=== PATIENT | male | born 1945 | race Caucasian/White ===

== ENCOUNTER 2016-10-22 01:32 | Inpatient (IN) | payer OTHER ==
[~2016-10-22] VITALS: Ht 185.4 cm; Wt 111.1 kg
[~2016-10-22 01:32] MED LIST: AMBIEN10 M1 PO; ASPIRIN81 M4 PO; CARAFATE1 GM PO; GABAPENTIN300 M2 PO; LEADER MELATONIN5 MG PO; NUEDEXTA 20-101 EACH PO; OMEPRAZOLE20 M2 PO; PAXIL40 M1 PO; PERCOCET 325 MG1 TA2 PO; PROTONIX 40MG T40 MG PO; XANAX1 M1 PO; XANAX1 MG PO
--- NOTE | 2016-10-22 15:00 | Operative Report ---
Operative/Inv Procedure Report Surgery Date: 10/22/16 Name of Procedure: Laparoscopic recurrent hiatal hernia repair with mesh and Patricia fundoplication Pre-Operative Diagnosis: Recurrent hiatal hernia GERD Post-Operative Diagnosis: Same same Estimated Blood Loss: 50ml to 100ml Surgeon/Stack Matcher: HAL BANDA,MONET Davila/Stephanie FIELDS Anesthesia: general endotracheal tube Implants: [employer] bio a mesh Operative Indication: 71-year-old male status post emergency repair of strangulated hiatal hernia 3 years ago. He now presents with recurrent GERD symptoms and a recurrent hiatal hernia. Operative/Procedure Note Note: After informed consent is brought to the operating room laid supine. Gen. anesthesia was obtained and his placed in lithotomy position. The skin was infiltrated local anesthesia a transverse incision made through pre-existing epigastric scar. We came down to the fascial bluntly and incised it sharply. Stay sutures were placed and a blunt Diop ports placed. Pneumoperitoneum achieved. A 5 mm port was placed in the right upper quadrant after local anesthesia was instilled and under direct vision and camera. Port was extracted and Naya retractor placed through it. Liver was elevated. There is density adhesions to the left lobe of liver. 3-5 mm ports were placed in the epigastrium and right upper quadrant after local anesthesia was instilled under direct vision the camera. Began or dissection at the liver. There were dense adhesions which were taken with the Sonicision device. We got into some bleeding so we turned attention to the left side. Radial to create a plane laterally dissect the fundus off of the left crura with blunt and Sonicision dissection. We then took down the short gastrics to allow better mobilization the fundus and free it down to level of the lower portion of the camera. This is really the only easy plane. The right side was much more difficult. Eventually took down all the adhesions and the liver which allowed us to identify the crura. We then got into the extra sac space anteriorly at the upper crura. We circumvention dissected the sac with a Sonicision device. We finally were able to circumferentially dissect the GE junction and place a umbilical tape around the GE junction. It was tied to itself and this was used to aid in retraction. The esophagus was mobilized from the mediastinum with a Sonicision device. Once we had 3-470 is of intra-abdominal esophagus we concluded that portion of the dissection. The crura were then reapproximated with interrupted 0 Nurolon sutures. The right crura was quite woody in nature making it very tense closure. We used proximally 7 sutures some of which were right on top one another to allow better apposition of the crura. I placed one suture anteriorly. At this point we created fundoplication by passing the fundus posterior to the GE junction. A shoeshine maneuver was performed. The fundus was then sutured anteriorly with interrupted 2-0 Vicryl sutures. A total of 3 sutures. Laced 2 of which contained the anterior portion of the esophagus. Then placed a piece of [employer] bio a mesh into the cavity. His placed posterior to the fundoplication and over the crural repair. The umbilical tape was extracted and ports deliver. The liver edge was allowed to fall down to its normal position. Ports removed and gas evacuated. The fascia was closed 0 Vicryl suture. Skin incisions closed with 4-0 Vicryl. Steri-Strips and sterile dressing applied. Sponge and needle counts are correct CC: JOSEFA BANDA,JOSE Grimm
--- NOTE | 2016-10-22 15:55 | Admission Core Measures ---
Admission Meds I reviewed the following Meds: Current Medications Sig/Deuce Start time Last Medication Dose Stop Time Status Admin Acetaminophen 1,000 MG Q6 10/22 1800 UNVr (Ofirmev) Alprazolam 1 MG AT BEDTIME NEED.. 10/22 1545 UNVr (Xanax) 10/29 1544 Cefazolin Sodium 2,000 MG IQ8 10/22 2200 UNVr (Kefzol-Ancef Inj) 10/23 0801 Cefazolin Sodium 2,000 MG ONCE 10/22 0000 NR (Kefzol-Ancef Inj) 10/22 2359 Gabapentin 300 MG AT BEDTIME 10/22 2200 UNVr (Neurontin) Heparin Sodium 5,000 UNIT Q8 10/22 2200 UNVr (Porcine) Ketorolac 15 MG Q6-PRN PRN 10/22 1600 UNVr Tromethamine (Toradol) Morphine Sulfate 2 MG Q2P PRN 10/22 1545 UNVr (Morphine) Morphine Sulfate 4 MG Q2P PRN 10/22 1545 UNVr (Morphine) Ondansetron HCl 4 MG Q6P PRN 10/22 1545 UNVr (Zofran) Paroxetine HCl 40 MG DAILY 10/23 1000 UNVr (Paxil) Potassium Chloride 20 MEQ Q10H 10/22 1545 UNVr (KCl 20MEQ in D5W 1/ 2NS 1000ML) Dextrose/Sodium 1,000 ML Chloride (D5W-1/2 Normal Saline 1000ML) Zolpidem Tartrate 10 MG AT BEDTIME PRN 10/22 1600 UNVr (Ambien) Acute Coronary Syndrome Inclusion Criteria ACS Diagnosis No Inpatient Core Measures LDL Reminder: If No, please order W/I first 24hr of stay Congestive Heart Failure Inclusion Criteria CHF Diagnosis No Cerebrovascular accident Inclusion Criteria CVA/TIA Diagnosis No Inpatient Core Measures Bedside Swallow Eval Reminder: If BSE failed, place ST order Antithrombotic Reminder: Order Antithrombotic Medication by end of day 2 Antithrombotic Reminder: Document Reason Antithrombotic Not ordered by end of day 2 AFIB/Flutter Reminder: If Present, add to problem list AFIB/Flutter Reminder: Order Anticoag Medication for pts with AFIB/Flutter Atherosclerosis Reminder: If Present, add to problem list LDL Reminder: If No, please order W/I first 24hr of stay PT Order Reminder: If No, please order Venous thromboembolism Inpatient Core Measures VTE Risk Factors: Age > 40, Surgery [facility] prophylaxis d/t No contraindications No VTE Pharm Prophylaxis d/t No contraindications Inclusion Criteria - Per Current guidelines, there needs to be overlap - treatment for the first 5 days of Warfarin therapy. - Parenteral Anticoagulation (IV or SC) needs to be - given along with Warfarin therapy. VTE Diagnosis No VTE Type NONE VTE Confirmed by (Test) NONE Problem List As ranked by this Provider includes Assessment & Plan 1. Hiatal hernia 2. Status post laparoscopic Patricia fundoplication HOME MEDS Home Med List Alprazolam (Xanax) 1 MG TABLET 1 TAB PO NIGHTLY PRN SLEEP (Reported) Gabapentin 300 MG CAPSULE 1 CAP PO NIGHTLY PAIN (Reported) Paroxetine HCl (Paxil) 40 MG TABLET 1 TAB PO DAILY ANXIETY (Reported) Zolpidem Tartrate (Ambien) 10 MG TABLET 2 TAB PO QPMP SLEEP (Reported)
--- NOTE | 2016-10-22 16:01 | Patient Discharge Instructions ---
Discharge Instructions General Discharge Information You were seen/treated for: Recurrent hiatal hernia, GERD You had these procedures: Surgery Date: 10/22/16 Name of Procedure: Laparoscopic recurrent hiatal hernia repair with mesh and Patricia fundoplication Watch for these problems: fever>101.3, increased pain, redness/swelling/drainage, dizziness, shortness of breath, chest pains No bath, but you may shower: Yes Other wound care: leave white steri strips in place. keep incisions clean & dry. Diet Continue normal diet: No Recommended Diet: fundoplication diet Activity Full Activity/No Limits: No Activity Self Limited: Yes Pounds, do NOT lift more than: 10 Activity Limited to: Weight bear as tolerated Other activity limits: no heavy lifting. no strenuous activity. Acute Coronary Syndrome Inclusion Criteria At DC or during hospital stay patient has or had the following: ACS DIAGNOSIS No Discharge Core Measures Meds if any: Prescribed or Continued at Discharge Meds if any: NOT Prescribed or Continued at Discharge Congestive Heart Failure Inclusion Criteria At DC or during hospital stay patient has or had the following: CHF DIAGNOSIS No Discharge Core Measures Meds if any: Prescribed or Continued at Discharge Meds if any: NOT Prescribed or Continued at Discharge Cerebrovascular accident Inclusion Criteria At DC or during hospital stay patient has or had the following: CVA/TIA Diagnosis No Discharge Core Measures Meds if any: Prescribed or Continued at Discharge Meds if any: NOT Prescribed or Continued at Discharge Venous thromboembolism Inclusion Criteria VTE Diagnosis No VTE Type NONE VTE Confirmed by (Test) NONE Discharge Core Measures - Per Current guidelines, there needs to be overlap - treatment for the first 5 days of Warfarin therapy. - If discharged on Warfarin prior to 5 days of - overlap therapy, the patient will need to be - assessed for post discharge needs including - *Post discharge parental anticoagulation - *Warfarin and/or parental anticoagulation education - *Follow up date to check INR post discharge At least 5 days overlap therapy as Inpatient No Meds if any: Prescribed or Continued at Discharge Note: Overlap Therapy is Warfarin and Anticoagulant Meds if any: NOT Prescribed or Continued at Discharge
[2016-10-22 17:00] VITALS: BP 110/40
--- NOTE | 2016-10-22 18:00 | NUR ---
1656 PATIENT ARRIVED TO THE FLOOR, A+O X3, ON 3L NC, NO S/O DISTRESS, ORIENTED TO THE ROOM, BED LOW, LOCKED, CALL LIGHT IN REACH.
[2016-10-22 20:30] VITALS: BP 104/58
--- NOTE | 2016-10-22 20:30 | NUR ---
RASH NOTED TO RIGHT ABDOMINAL FOLD WITH EXCORIATION, TIGHTNESS/PAIN TO CHEST WITH DEEP INHALATIONS, VSSDIAMOND YELENA NOTIFIED. CONTINUE TO MONITOR PER PA.
[2016-10-22 21:56] VITALS: BP 100/66
[2016-10-23 04:09] VITALS: BP 112/72
--- NOTE | 2016-10-23 08:00 | NUR ---
0800 PATIENT REFUSED 0800 VITALS.
--- NOTE | 2016-10-23 08:05 | PN- Student ---
See Addendum SANDIE PARISH 10/23/16 0757: Subjective Subjective: Patient seen this am, reports epigastric, left shoulder and susan-incisional abdominal pain made worse with deep inhalation that was well controlled with morphine yesterday. Was given toradol for pain today because he did not want to "become dependent on morphine". He states the toradol was not as effective as morphine for pain control. He is concerned that his chest pain is related to his heart disease. Reports hiccups. Denies n/v, headaches and dizziness. Has been passing flatus, no bm yet. Has not been OOB yet. Reports concern about lower abdominal rash that he has been taking nystatin cream and powder for for one month. He states it has only gotten worse over time and is concerned it is not a fungus. Objective Objective: Vital Signs Result Date Time Pulse Ox 93 10/23 0409 B/P 112/72 10/23 0409 Temp 98.3 10/23 0409 Pulse 63 10/23 0409 Resp 20 10/23 0409 O2 Delivery CPAP 10/23 0000 O2 Flow Rate 3.0L 10/22 1800 Intake & Output 10/23 0000 10/22 1600 10/22 0800 Intake Total 640 Output Total 750 Balance -110 Intake, IV 400 Intake, Oral 240 Number 0 Bowel Movements Output, Urine 750 Patient 245 lb Weight Weight Reported by Patient Measurement Method General: awake, alert, oriented Lungs: CTAB, no wheeze/rales/rhonchi Heart: S1 S2, RRR, no M, R, G Abdomen: soft, non-distended, hypoactive bowel sounds, susan-incisional tenderness to palpation and percussion - worse in epigastric and RUQ, tympanic, dressings clean, dry and intact, erythematous rash in right pannus with small skin split on right side Extremities: Gross motor/sensory function in tact - slightly less sensation on left lower leg, no calf tenderness bilaterally, no peripheral edema Results Results: Laboratory Tests 10/23/16 0640: Anion Gap 7, Estimated GFR > 60, BUN/Creatinine Ratio 10.0, CBC w Diff Pending, WBC Pending, RBC Pending, Hgb Pending, Hct Pending, MCV Pending, MCH Pending, RDW Pending, Plt Count Pending, MPV Pending, PUBS MCHC Pending Microbiology 10/22 1000 URINE OR: Urine Culture - RES Assessment/Plan Assessment: This is a 71 y/o male POD # 1 laparoscopic revision of hiatal hernia repair with fundoplication and mesh placement with PMH significant for CAD/stents, sleep apnea, depression and anxiety. Post-op pain adequately managed. Skin rash chronic and likely due to intertrigo. Plan: Diet: stage 1 fundoplication diet Pain: continue current pain regimen DVT ppx: subq heparin, ALPS OOB and ambulate D/C brown this am KUSUM SANCHEZ 10/23/16 0936: Resident Review Statement Other Findings: PA NOTE: agree with PA student note. Pt offers many complaints: - Belching, nausea following breakfast. Zofran now. Nutrition did come by in attempt to review fundoplication diet, patient refused instruction. He is encouraged to receive this instruction. -chest pain is epigastric, likely due to surgery, unlikely cardiac in origin- due to pmhx cad/stents, will check troponin to rule out cardiac cause -By mouth pain meds as needed (requests 36 pills of 7.5mg percocets on dc- will ismael dewitt) -Out of bed, ambulate, hep sq - Hep-Lock - DC Brown, due to void - Inter-dry or dry gauze to right lower quadrant abdominal skin tear, does not want nystatin because he said it does not work - DC planning - Will discuss above with Dr. Morales
[2016-10-23 08:44] LABS: ABSOLUTE BASOPHIL COUNT 0 /CUMM (0.0-0.2); ABSOLUTE EOSINOPHIL COUNT 0 /CUMM (0.0-0.7); ABSOLUTE GRANULOCYTE CT 5.9 /CUMM (1.4-6.5); ABSOLUTE LYMPH COUNT 1.6 /CUMM (1.2-3.4); ABSOLUTE MONOCYTE COUNT 0.8 /CUMM (0.10-0.60); BASOPHIL % 0.3 % (0.0-2.0); EOSINOPHIL % 0.6 % (0-5); GRANULOCYTE % 70.4 % (42.2-75.2); MEAN CORPUSCULAR HGB 29.4 PG (27.0-31.0); MEAN CORPUSCULAR HGB CONC 33.5 G/DL (33.0-37.0); MEAN CORPUSCULAR VOLUME 87.7 FL (80.0-94.0); MEAN PLATELET VOLUME 8.6 FL (7.4-10.4); PLATELET COUNT 143 /CUMM (130-400); RBC DISTRIBUTION WIDTH 14.1 % (11.5-14.5); RED BLOOD CELL CT 4.13 /CUMM (4.70-6.10); WHITE BLOOD CELL COUNT 8.4 /CUMM (4.8-10.8)
--- NOTE | 2016-10-23 08:58 | NUR ---
LATE ENTRY FOR 10/22/16 793 SPOKE WITH SURGICAL PA Falguni TO INFORM OF PT PAIN AT BOTH SHOULDERS/MID-CHEST. PER SURGICAL PA THIS LOCATION OF PAIN TO BE EXPECTED WITH SURGICAL PROCEDURE DONE ON THIS PT. SURGICAL PA ALSO NOTIFIED OF PT REFUSING TYLENOL IV ORDERED. SEE EMAR. WILL CONTINUE TO MONITOR.
[2016-10-23 11:21] LABS: HEMATOCRIT 36.3 % (42-52)
--- NOTE | 2016-10-23 11:21 | Surg Short-stay <48hrs Dis Sum ---
Visit Information Visit Dates Admission Date: 10/22/16 Discharge Date: 10/23/16 Surgical Short Stay DC Summary Admission Diagnosis: recurrent hiatal hernia with GERD Final Diagnosis: same Procedure(s): laparoscopic hiatal hernia repair with mesh and Patricia fundoplication. Summary/Significant Findings: none Condition at Discharge: good Discharge Disposition: home or self care Discharge instructions provided to patient/family: Yes Post discharge follow-up plan: 2 weeks
[2016-10-23 11:40] VITALS: BP 124/70
[2016-10-23] MEDS ORDERED: PERCOCET 7.5-31 EACH PO (11:40)
--- NOTE | 2016-10-23 11:48 | NUR ---
PATIENT REFUSED TROPONINS THIS AM. VSS, NO S/O DISTESS, CHEST TIGHTNESS REPORTED WITH DEEP INHALATIONS S/P HIATAL HERNIA REPAIR WITH FUNDOPLICATION. DIAMOND NOE NOTIFIED.
--- NOTE | 2016-10-23 11:50 | NUR ---
NOTED NOON VITAL SIGNS STABLE AFTER 0800 REFUSAL OF VITALS.
== END 2016-10-23 13:00 | DRG 328 ==
LOC: SDA 01:32 → ENRESERV 16:15 → ENTRNSPT 16:31 → 2NB 16:57 → CMPTRNSPT 17:33 → ENPENDDIS 10-23 11:54 → 2NB 10-23 13:00
PROVIDERS: Physician Assistant; ADMIT Surgery
PROC: 0BUS4JZ (ICD-10-PCS; principal; 2016-10-22)
PROC: 0BUR4JZ (ICD-10-PCS; 2016-10-22)
PROC: 0DV44ZZ Restriction of Esophagogastric Junction, Percutaneous Endoscopic Approach (ICD-10-PCS; 2016-10-22)
DX: K44.9 Diaphragmatic hernia without obstruction or gangrene (principal); E55.9 Vitamin D deficiency, unspecified; K21.9 Gastro-esophageal reflux disease without esophagitis; J45.909 Unspecified asthma, uncomplicated; R00.2 Palpitations
CPT/HCPCS: 82436; 87086; C1781; C9399; J0131; J0690; J1644; J1885; J2270; J2405; J7042

== ENCOUNTER 2017-07-30 07:14 | Inpatient (IN) | payer OTHER ==
[~2017-07-30] VITALS: Ht 188 cm; Wt 113.4 kg
[~2017-07-30 07:14] MED LIST changes: +PANTOPRAZOLE SO40 M1 PO; +PERCOCET 7.5-31 EACH PO; +XARELTO10 M1 PO; +XARELTO20 M2 PO
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
[2017-07-30 07:57] LABS: ABSOLUTE BASOPHIL COUNT 0 /CUMM (0.0-0.2); ABSOLUTE EOSINOPHIL COUNT 0.2 /CUMM (0.0-0.7); ABSOLUTE GRANULOCYTE CT 5.5 /CUMM (1.4-6.5); ABSOLUTE LYMPH COUNT 1.9 /CUMM (1.2-3.4); ABSOLUTE MONOCYTE COUNT 0.6 /CUMM (0.10-0.60); BASOPHIL % 0.5 % (0.0-2.0); EOSINOPHIL % 2.7 % (0-5); GRANULOCYTE % 66.7 % (42.2-75.2); HEMATOCRIT 33.1 % (42-52); MEAN CORPUSCULAR HGB 29.4 PG (27.0-31.0); MEAN CORPUSCULAR HGB CONC 33.3 G/DL (33.0-37.0); MEAN CORPUSCULAR VOLUME 88.1 FL (80.0-94.0); PLATELET COUNT 245 /CUMM (130-400); RBC DISTRIBUTION WIDTH 14.3 % (11.5-14.5); RED BLOOD CELL CT 3.75 /CUMM (4.70-6.10); WHITE BLOOD CELL COUNT 8.2 /CUMM (4.8-10.8)
--- NOTE | 2017-07-30 09:02 | RADIOLOGY REPORT ---
EXAMINATION: XR CHEST XR RIBS, LEFT CLINICAL INFORMATION: Fall 2 weeks ago. Left-sided chest pain COMPARISON: CT chest 12/17/2016 TECHNIQUE: Expiratory frontal view chest obtained along with 4 views left ribs for a total of 5 views. FINDINGS: There is no visible rib fracture or rib destructive process. Left shoulder prosthesis present. Hardware appears intact. The acromioclavicular alignment appears normal. There are low lung volumes consistent with the expiratory radiograph. There is no pneumothorax, subcutaneous emphysema, or pleural reaction. No airspace consolidation or effusion. Cardiac and hilar mediastinal contours similar to AP lcpc view from CT chest. IMPRESSION: 1. No visible rib fracture. 2. No pneumothorax, pleural reaction, or effusion.
--- NOTE | 2017-07-30 11:55 | CT SCAN REPORT ---
EXAMINATION: CT ANGIOGRAM CHEST FOR PE CLINICAL INFORMATION: 71-year-old male with history of fall 2 weeks ago, presented with left-sided chest pain. COMPARISON: Chest radiograph and left hemithoracic ribs done earlier today and CTA of the chest done on 12/17/2016. TECHNIQUE: Multidetector volumetric CT imaging of the chest is obtained after the administration of 51 mL Optiray 320 without immediate adverse reactions. Additional reformatted 2D images and maximum intensity projection 3D MIP images are generated on the CT workstation. DLP: 523.17 mGy-cm FINDINGS: PULMONARY ARTERIES: The pulmonary arteries enhance normally. There are no filling defects or other changes to suggest acute or chronic pulmonary embolism within the main and segmental pulmonary arterial branches. MEDIASTINUM: Atherosclerotic disease including significant coronary arterial atherosclerotic changes are present. There is no pathologically enlarged mediastinal and/or hilar lymphadenopathy present. There is no aortic aneurysm present. No significant change. LUNGS: Linear airspace disease is noted at left lung base both anteriorly as well as posteriorly, likely represents hypoventilatory, atelectatic changes or, given the patient's history of trauma, may represent lung contusion. Otherwise both lungs are clear. The tracheobronchial tree appears patent. PLEURA: There is no pleural effusion. No pleural mass or thickening. AXILLA: No lymphadenopathy. UPPER ABDOMEN: Small sliding hiatal hernia and likely small fundal diverticulum is noted, unchanged. Previously documented fat-containing lesion seen involving the left adrenal gland is partially included within the [id number] and accordingly cannot be optimally compared with the prior study dated 12/17/2016. OSSEOUS STRUCTURES: Subtle contour irregularities are noted along the posteromedial aspect of the left lower hemithorax involving the left 9th, 10th ribs, given the history of trauma, most consistent with subtle nondisplaced fracture. Minimally displaced fractures are also noted involving the anterolateral aspect of the left 5th, 6th ribs. IMPRESSION: 1. No evidence of pulmonary embolism. 2. Minimally displaced rib fractures involving anterolateral aspect of the left 5th, 6th ribs and subtle nondisplaced fracture involving posteromedial aspect of the left 9th, 10th ribs. 3. Nonspecific airspace disease at left lung base, may represent hypoventilatory, atelectatic changes versus pulmonary contusion. 4. Atherosclerotic disease within the aorta and its branches with significant atherosclerotic burden within the coronary arteries. 5. Small sliding hiatal hernia and likely small fundal diverticulum of the stomach.
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
--- NOTE | 2017-07-30 16:32 | Cons- Gastroenterology ---
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 fundoplication, per Dr. Morales, for recurrent hiatal hernia & GERD symptoms. 03/25/17: WBC 5.7, H/H 14.7/43.9, MCV 87, RDW 15, PLT 231, BUN/Cr 13/0.9, GFR > 60. 07/30/17: WBC 8.2, H/H 11.0/33.1, MCV 88.1, RDW 14.3, PLT 245, glucose 98, BUN/ Cr 32/0.7, GFR > 60, Na 140, K 5.1, HCO3 25, AG 11, albumin 3.0, globulin 2.6, TBil 0.4, alk phos 79, AST 14, ALT 13, troponin < 0.01, TSH 2.78; U/A- clear yellow, 1.020, 7.0; micro- otherwise neg, neg nitiriite, neg esterase. *No coags were sent. 07/30/17: EKG- NSR @ 86, LAHB, nl intervals, PRWP, NSST inf. 07/30/17: XRY-CHEST XRAY, TWO VIEWS; XRY-RIBS UNILATERAL-LEFT- 1. No visible rib fracture. 2. No pneumothorax, pleural reaction, or effusion. 07/30/17: CT ANGIOGRAM CHEST FOR PE- IMPRESSION: 1. No evidence of pulmonary embolism. 2. Minimally displaced rib fractures involving anterolateral aspect of the left 5th, 6th ribs and subtle nondisplaced fracture involving posteromedial aspect of the left 9th, 10th ribs. 3. Nonspecific airspace disease at left lung base, may represent hypoventilatory, atelectatic changes versus pulmonary contusion. 4. Atherosclerotic disease within the aorta and its branches with significant atherosclerotic burden within the coronary arteries. 5. Small sliding hiatal hernia and likely small fundal diverticulum of the stomach. As of 07/30/17, clinically, I felt the patient was having an upper GI bleed, post Aleve, with blackish red stool, dropping H/H, and elevated BUN/Cr ratio. Despite his history of PE 2, positive anticardiolipin Ab, hx ASHD post remote cardiac stent 2006, etc. he has repeatedly refused all of his medications, except for Paxil & the Aleve, which he was taking for his recent left-sided rib fractures. He was not compliant with Xarelto, & he repeatedly refused a baseline colonoscopy. He is agreeable to an upper endoscopy, although he refused to be NPO & was just eating candy! Informed consent for EGD was obtained from the patient, after careful explanation of the risks & benfits. As the patient just ate solid food, he would have to be intubated to do an EGD now, & will try to hold off on EGD until the a.m., depending on the clinical course. He has repeatedly refused tp allow blood draws & is refusing a PT/PTT. With his orthostatic hypotension, syncope, & blackish red stool, I advised an ICU bed, which the patient is refusing. The patient was made aware that I cannot be held responsible for any adverse outcome or misdiagnosis if he is repeatedly not compliant with the suggested GI workup. He has been repeatedly been non- compliant with the suggestions of his other MDs, as well. SUGGEST: NPO as patient allows. PT/PTT. Protonix 80 mg IV bolus, followed by 8 mg/hr IV drip. ICU admit, as patient allows (if he refuses this, he will be monitored in the ER overnight). Check CBC Q6-8h. 2 large bore IVs. Strict I/O's. T&C 2u PRBC. Keep Hgb > 8 (hx ASHD). Supplemental O2 as needed. Obviously, no NSAIDS, but may need narcotic analgesics for rib fxs. Check stool Ag H. pylori. Workup of other numerous medical issues by other numerous disciplines, as patient allows. Hematology should be notified of the patient's admission (not that a consult is needed, but to let them know that he has refused Xarelto & can't take it now, anyway). If EGD is negative, the patient absolutely refuses a baseline colonoscopy. The above findings & recommendations were discussed with Dr. Stapleton, as well as Dr. Shaver, & with the patient. Further GI recommendations to folow, depending on clinical course. The patient is to follow up with Dr. Gonzalez for outpt GI care, after discharge. *Over 1 hour of ICU care was spent on the patient. Problem List: 1. Orthostatic hypotension 2. Syncope 3. GI bleeding 4. Melena 5. NSAIDs adverse reaction 6. Status post laparoscopic Patricia fundoplication 7. Hypercoagulable state 8. Anticardiolipin antibody positive 9. History of pulmonary embolus (PE) 10. ASHD (arteriosclerotic heart disease) Copies To: Char BANDA,Sergey Stapleton; Sivakumar BANDA,[place]; Christelle BANDA,Jose Carlos; Carlos BANDA,[place]; Andrew BANDA,Luis Davila; Anthony BANDA,Jaquan Grimm; Ramón BANDA,Roberto Reilly. Consult Acknowledgment - Thank you for your consult request.
--- NOTE | 2017-07-30 21:55 | Admission Certification ---
Admission Certification Certification Statement - As attending physician, I certify that at the time of - admission, based on clinical presentation, severity of - symptoms, need for further diagnostic testing and - therapeutic interventions, and risk of adverse outcomes - without in-hospital treatment, in my clinical assessment, - this patient requires an acute hospital stay for a minimum - of two nights or longer. I have also considered psychsocial - factors such as support system, advanced age, financial - issues, cognitive issues, and failed out-patient treatments, - past re-admission history, safety of patient, and lack of - compliance as applicable. Specific rationale supporting this admission is: The patient presents with syncopoe and evidence of upper GI bleeding/acute blood loss anemia. Significantly orthostatic. Needs ICU admission for close hemodynamic monitoring, EKG monitoring, GI consult- Dr. Cano, IV protonix drip, urgent EGD. Follow serial H/H.
[2017-07-31 00:13] LABS: ABSOLUTE BASOPHIL COUNT 0.1 /CUMM (0.0-0.2); ABSOLUTE EOSINOPHIL COUNT 0.1 /CUMM (0.0-0.7); ABSOLUTE GRANULOCYTE CT 5.9 /CUMM (1.4-6.5); ABSOLUTE LYMPH COUNT 2.8 /CUMM (1.2-3.4); ABSOLUTE MONOCYTE COUNT 0.7 /CUMM (0.10-0.60); BASOPHIL % 0.6 % (0.0-2.0); GRANULOCYTE % 62.2 % (42.2-75.2); HEMATOCRIT 30.2 % (42-52); MEAN CORPUSCULAR HGB 29.8 PG (27.0-31.0); MEAN CORPUSCULAR HGB CONC 33.7 G/DL (33.0-37.0); MEAN CORPUSCULAR VOLUME 88.6 FL (80.0-94.0); MEAN PLATELET VOLUME 7.9 FL (7.4-10.4); PLATELET COUNT 200 /CUMM (130-400); RBC DISTRIBUTION WIDTH 14.6 % (11.5-14.5); RED BLOOD CELL CT 3.41 /CUMM (4.70-6.10); WHITE BLOOD CELL COUNT 9.5 /CUMM (4.8-10.8)
[2017-07-31 00:30] VITALS: BP 140/78
[2017-07-31 00:32] LABS: PTT 27 SEC (25-37)
[2017-07-31 02:00] VITALS: BP 117/54
[2017-07-31 05:14] LABS: ABSOLUTE BASOPHIL COUNT 0 /CUMM (0.0-0.2); ABSOLUTE EOSINOPHIL COUNT 0.1 /CUMM (0.0-0.7); ABSOLUTE GRANULOCYTE CT 4.1 /CUMM (1.4-6.5); ABSOLUTE LYMPH COUNT 2.5 /CUMM (1.2-3.4); ABSOLUTE MONOCYTE COUNT 0.5 /CUMM (0.10-0.60); BASOPHIL % 0.6 % (0.0-2.0); EOSINOPHIL % 1.5 % (0-5); GRANULOCYTE % 56.6 % (42.2-75.2); HEMATOCRIT 28.5 % (42-52); MEAN CORPUSCULAR HGB 29.4 PG (27.0-31.0); MEAN CORPUSCULAR HGB CONC 33.3 G/DL (33.0-37.0); MEAN CORPUSCULAR VOLUME 88.2 FL (80.0-94.0); PLATELET COUNT 231 /CUMM (130-400); RBC DISTRIBUTION WIDTH 14.2 % (11.5-14.5); RED BLOOD CELL CT 3.23 /CUMM (4.70-6.10); WHITE BLOOD CELL COUNT 7.3 /CUMM (4.8-10.8)
[2017-07-31 05:23] LABS: PT 12.7 SEC (9.4-12.5); PTT 30 SEC (25-37)
[2017-07-31 08:00] VITALS: BP 130/74
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
--- NOTE | 2017-07-31 09:02 | Proc Note Endoscopy ---
See Addendum Endoscopy Procedure Medical History: unchanged Mental Status: alert/oriented (A&O x 3, but bizarre & irate) Heart/Lung Eval Prior to Sedation: within normal limits Candidate for Sedation? Yes Procedure Date: 07/31/17 Procedure Type: EGD Director Of Catering: JAZZY FARR MD ASA Classification: III (III-E) Indications: INDX: (*Please refer to my extensive GI consult of 07/30/17). 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 The patient is hypercoaguable, with + anti-cardiolipin Ab, but has refused A/C tx in the past, despite PE x 2 (1996 & 11/01/16-> signed out AMA for the latter!). He has also refused his cardiac meds, despite ASHD & hx cardiac stent 2006. Hx JOSE MARIA. PTSD. *The patient has intermittently refused this EGD, but now agreed to it, after careful explanation of the risks & benefits. He initially refused ICU admit & has refused to allow the RNs to examine his stools. He has refused the IV Protonix drip. If the EGD is negative, he absolutely refuses a baseline colonoscopy. He was made aware that his noncompliance could result in his . He was A&O x 3 & accepted these risks. The patient is followed by Dr. Gonzalez for [facility], who has done previous EGDs on him. Instrument: diagnostic gastroscope Meds Received: MAC Patient's Tolerance: good Complications: none Extent Reached: D3 Procedure: Follow-up upper endoscopy to the third portion of the duodenum, was performed with the Olympus high definition videoendoscope, after obtaining informed consent from the patient, with the cardiac catheterization technician and pulse oximeter, with the assistance of the GI on-call RNs, Soheila & Nilda, & with Dr. Miller, of [facility]. A mouthpiece was placed in the usual fashion to protect the patient's teeth. The patient was placed in the left lateral decubitus position and sedated by [facility]. At this point, the endoscope was advanced through the fenestrated hole in the NRB mask, into the mouth, then into the esophagus, using direct visualization technique. I did not get a good look at the vocal cords. The esophageal mucosa appeared normal. There were no esophageal rings, webs, lesions, strictures, or ulcers. There was no monilia or vesicles. There was no esophageal ribbing. There was suggestion of some mild presbyesophagus. The Z line was well demarcated at 38 cm. There was no residual hiatal hernia pouch, post Patricia fundoplication with mesh. The wrap was intact. No significant esophageal inflammation was seen. There were no ectopic islands, nor gross Seay's esophagus. There were no esophageal or gastric varices, nor any Aniya Hanson tear. The jacobs of the stomach distended normally with air insufflation. Direct and retroflexed views of the stomach were performed. There was nothing endoscopically to suggest gastroparesis or portal gastropathy. There was a non-bleeding linear erosion at the posterior wall of the gastric body, which was organizing, & left intact. There was a 3 mm sessile gastric polyp at the posterior wall of the body/fundus, which was left intact. The remainder of the mucosa of the gastric cardia, fundus, lesser curvature, incisura, & body appeared normal, without any gastric ulcers or gastric lesions. The gastric antrum showed some superficial erosions. Additionally, there were 2 kissing 1 cm clean-based, organizing, prepyloric antral gastric ulcers, without any clot or visible vessel. These were symmetrical with radiating folds, & biopsies were deferred. The pylorus was patent, without any gastric outlet obstruction or channel ulcer. The duodenal bulb, duodenal sweep, & third portion of the duodenum appeared normal, without any duodenal ulcers, distal ulcerations, or angiodysplasias. I was not able to see the ampulla with the direct-viewing scope. Bile was seen in the second and third portions of the duodenum, without any fresh blood. The folds of the second & third portions of the duodenum were normal in caliber, without any flattening, nodularity, scalloping, or mosaic pattern. No active upper GI bleeding was seen. The patient presumably had bled from the superficial erosions & antral ulcers, which were clean based, post NSAIDs. Ideally, he should have a colonoscopy, but he continued to refuse this. The patient tolerated the procedure well. Documenting photographs were left inside the patient's chart. Impression: 1. Post Patricia fundoplication with mesh,with intact wrap. No residual hiatal hernia. Z line at 38 cm. 2. Non-bleeding linear erosion, posterior wall of gastric body, organizing, & left intact, without biopsies. 3. 3 mm sessile gastric polyp at posterior wall of body/fundus, left intact. 4. 2 kissing 1 cm clean-based, organizing, prepyloric antral gastric ulcers, without any clot or visible vessel, symmetrical with radiating folds. Biopsies deferred. Adjacent superficial antral erosions. 5. Patent pylorus without gastric outlet obstruction. Otherwise, normal study to the third portion of the duodenum. Recommendations: The patient is currently without active upper GI bleeding. He presumably had bled from the clean based antral ulcers & superficial erosions, post NSAIDs. * Ideally, he was made aware that he should have a baseline colonoscopy, however he continued to refuse this. Based on the endoscopic findings, the patient does not have to remain in the ICU. May downgrade to General Medicine. The patient has intermittently refused his Protonix drip, but he no longer needs this, based on the endoscopic findings. *Advise switching to IV PPI to PPI po BID, 1/2 hour before breakfast & supper. *No NSAIDS! Narcotic analgesics for rib fxs. Feed patient as tolerated. Mobilize patient. Check CBC BID for now. 2 large bore IVs. Strict I/O's. T&C 2u PRBC. Keep Hgb > 8 (hx ASHD). Supplemental O2 as needed. *Check stool Ag H. pylori. Workup of other numerous medical issues by other numerous disciplines, as patient allows. Hematology should be notified of the patient's admission (not that a consult is needed, but to let them know that he has refused Xarelto & can't take it now, anyway). The patient was already stating that he wanted to be discharged today, 07/31/17. I felt that he should be kept overnight to observe his CBC and see how he tolerated his diet. The patient was again threatening to sign out AMA postop. I told the patient that he should follow up with Dr. Gonzalez within 1 month of discharge, for an outpt GI visit. He was also told that he should have a follow-up EGD with Dr. Gonzalez in 2 months (i.e.- 10/2017), to recheck the gastric ulcers and directly biopsy them if they persist, to rule out the unlikely chance of a malignancy. The above findings and recommendations, including the endoscopic photographs, were reviewed with the patient at the bedside postoperatively, in great detail. I also discussed the above findings with the medical ICU house staff and with Dr. Shaver postoperatively. Further GI recommendations to follow, depending on clinical course, but I anticipate the patient signing out AMA, based on his past behavior. Again, the patient was made aware that his noncompliance with the GI and medical suggestions could result in his . Consider psychiatric evaluation, however the patient is his own POA, & is A & O x 3. CC: Char BANDA,Sergey Stapleton; Sivakumar BANDA,[place]; Christelle BANDA,Jose Carlosholli Gonzalez MD,Brady; Andrew BANDA,Luis Cruz MD,Jaquan Grimm; Ramón BANDA,Roberto Lechuga
--- NOTE | 2017-07-31 09:21 | PN- CRCU ---
Hafsa Wheatley 07/31/17 0920: Subjective HPI/Critical Care Issues: HPI/CICU issues 1. acute blood loss anemia most likely due to upper GI bleed 2. Melena most likely due to upper GI bleed but we will rule out lower GI bleed with colonoscopy 3. Acute multiple rib fractures 4. History of obstructive sleep apnea 5. History of syncopal episodes most likely vasovagal but arrhythmias needs to be ruled out 24 hour events Patient was seen and examined this morning. He had endoscopy done by Dr. Cano. He is of limited we will admit this is reasonable and he is he is being he is now just getting any likely is is started on he can correlate with taking so I will 1 mCi which did show this morning and no active bleeding ulcers were found. Initially he was refusing for colonoscopy but later on after having another episode of black tarry stool he changed his mind and now agreeable for colonoscopy. He remained hemodynamically stable but at times was complaining of slight dizziness. Labs this morning were WBC count 7.3, hemoglobin 9.5 dropped from 11.0, hematocrit 28.5, platelet count 231. Objective Current Medications: Current Medications Sig/Deuce Start time Last Medication Dose Route Stop Time Status Admin Acetaminophen 0 .STK-MED ONE 07/30 2346 DC PO Acetaminophen 0 .STK-MED ONE 07/30 1500 DC PO Acetaminophen 650 MG Q6P PRN 07/30 1415 AC 07/30 PO 2341 Furosemide 80 MG ONCE ONE 07/30 2000 CAN IV 07/30 2001 Lidocaine 1 PAT DAILY PRN 07/30 1545 AC 07/30 EXT 1555 Omeprazole 40 MG BID 07/31 2100 AC PO Ondansetron HCl 4 MG Q6P PRN 07/30 1415 AC IV Oxycodone/ 1 TAB Q4P PRN 07/31 0945 AC 07/31 Acetaminophen PO 0941 Pantoprazole Sodium 0 .STK-MED ONE 07/30 205 DC IV Pantoprazole Sodium 80 MG ONE ONE 07/30 2044 DC 07/30 IV 07/30 2045 2114 Pantoprazole Sodium 40 MG Q5H 07/31 1999 DC 07/30 Sodium Chloride 100 ML IV 2113 Pantoprazole Sodium 0 .STK-MED ONE 07/30 1407 DC IV Pantoprazole Sodium 40 MG ONCE ONE 07/30 1400 DC 07/30 IV 07/30 1401 1406 Paroxetine HCl 40 MG DAILY 07/31 0900 AC 07/31 PO 0941 Polyethylene Glycol 1 GAL .[ONCE IN 4-5 HRS] 07/31 1400 UNVr PO Sodium Chloride 1,000 ML Q6H 07/30 1730 DC IV 07/31 0529 Sodium Chloride 1,000 ML BOLUS ONE 07/30 1215 DC 07/30 IV 07/30 1314 1221 Tramadol HCl 50 MG ONCE ONE 07/31 0030 DC PO 07/31 0031 Tramadol HCl 0 .STK-MED ONE 07/30 1558 DC PO Tramadol HCl 25 MG ONCE ONE 07/30 1545 DC 07/30 PO 07/30 1546 1555 Vital Signs & I&O Last 24 Hrs of Vitals and I&O: Vital Signs Date Time Temp Pulse Resp B/P B/P Pulse O2 O2 Flow FiO2 Mean Ox Delivery Rate 07/31 0800 99.8 98 18 130/74 95 Room Air 07/31 0400 95 Room Air Room Air 07/31 0200 84 16 117/54 07/31 0048 98 07/31 0045 98 Room Air 07/31 0041 96 Room Air Room Air 07/31 0030 99.1 96 14 140/78 96 Room Air Room Air 07/30 2342 102 18 139/73 97 Room Air 07/30 2341 98.1 07/30 2236 98.1 74 16 112/64 99 Room Air 07/30 2144 98.0 77 16 115/61 96 Room Air 07/30 2048 98.1 74 18 114/76 98 CPAP Room Air 07/30 2040 72 98 07/30 1942 98.4 77 16 111/64 97 CPAP Room Air 07/30 1837 98.9 98 18 122/84 98 Room Air 07/30 1315 98.2 76 19 102/69 95 Room Air Intake & Output 07/31 1600 07/31 0800 07/31 0000 Intake Total 0 Output Total Balance 0 Intake, Oral 0 Number 2 Bowel Movements Patient 250 lb Weight Weight Reported by Patient Measurement Method Exam General Appearance: alert, awake, anxious Neck: supple, full range of motion Respiratory: chest non-tender, no respiratory distress Cardiovascular: regular rate/rhythm Abdomen: soft, non-tender Extremities: normal inspection Results Last 24 Hrs of Lab Results: Laboratory Tests 07/31/17 0700: CBC w Diff Cancelled, WBC Cancelled, RBC Cancelled, Hgb Cancelled, Hct Cancelled , MCV Cancelled, MCH Cancelled, MCHC Cancelled, RDW Cancelled, Plt Count Cancelled, MPV Cancelled 07/31/17 0455: Anion Gap 11, Estimated GFR > 60, Glucose 97, Calcium 8.3 L, Phosphorus 3.4, Magnesium 2.0, Total Bilirubin 0.4, AST 13 L, ALT 15 L, Albumin 3.2 L, PT 12.7 H, INR 1.16, APTT 30, CBC w Diff NO MAN DIFF REQ, RBC 3.23 L, MCV 88.2, MCH 29.4, MCHC 33.3, RDW 14.2, MPV 8.0, Gran % 56.6, Lymphocytes % 34.0, Monocytes % 7.3, Eosinophils % 1.5, Basophils % 0.6, Absolute Granulocytes 4.1, Absolute Lymphocytes 2.5, Absolute Monocytes 0.5, Absolute Eosinophils 0.1, Absolute Basophils 0 07/31/17 0100: CBC w Diff Cancelled, WBC Cancelled, RBC Cancelled, Hgb Cancelled, Hct Cancelled , MCV Cancelled, MCH Cancelled, MCHC Cancelled, RDW Cancelled, Plt Count Cancelled, MPV Cancelled 07/30/17 2355: CBC w Diff NO MAN DIFF REQ, RBC 3.41 L, MCV 88.6, MCH 29.8, MCHC 33.7, RDW 14.6 H, MPV 7.9, Gran % 62.2, Lymphocytes % 29.3, Monocytes % 6.9, Eosinophils % 1.0 , Basophils % 0.6, Absolute Granulocytes 5.9, Absolute Lymphocytes 2.8, Absolute Monocytes 0.7 H, Absolute Eosinophils 0.1, Absolute Basophils 0.1 07/30/17 2354: APTT 27 Diagnostic Data Miscellaneous Findings: Endoscopy findings 1. Post Patricia fundoplication with mesh,with intact wrap. No residual hiatal hernia. Z line at 38 cm. 2. Non-bleeding linear erosion, posterior wall of gastric body, organizing, & left intact, without biopsies. 3. 3 mm sessile gastric polyp at posterior wall of body/fundus, left intact. 4. 2 kissing 1 cm clean-based, organizing, prepyloric antral gastric ulcers, without any clot or visible vessel, symmetrical with radiating folds. Biopsies deferred. Adjacent superficial antral erosions. 5. Patent pylorus without gastric outlet obstruction. Otherwise, normal study to the third portion of the duodenum. Impression/Plan Impression/Plan Impression/Plan: Patient is 71-year-old gentleman with past medical history significant for anxiety, depression, PTSD, obstructive sleep apnea, CAD, GERD, multiple obstructed hiatal hernia requiring Patricia fundoplication and mesh repair, history of gastric volvulus and last EGD in September 2016 showed erosive gastritis came with lightheadedness and syncopal episode most probably due to acute blood loss anemia and given episodes of melena during hospital stay. Initial endoscopy showed nonbleeding linear erosionsc 1 out at posterior wall of body/ fundus, left intact. Plan Problem list 1. acute blood loss anemia most likely due to upper GI bleed 2. Melena most likely due to upper GI bleed but we will rule out lower GI bleed with colonoscopy 3. Acute multiple rib fractures 4. History of obstructive sleep apnea 5. History of syncopal episodes most likely vasovagal but arrhythmias needs to be ruled out Respiratory: He saturating fine on room air without any significant respiratory distress. Patient has history of obstructive sleep apnea on CPAP at night Infectious disease Patient remained afebrile with normal WBC count without any evidence of infectious etiology. Circulatory----- syncopal episode most likely vasovagal --- Patient had syncopal episode at the beginning and he was hypo-intensive and orthostatic positive which after fluid resuscitation is better. Cardiology evaluation was requested still pending. No evidence of arrhythmia for now. Hematology He dropped his H&H from 11.0/33.1 to 9.5/28.5. We'll monitor CBCs every 12 hours and. Keep hemoglobin more than 8 and will transfuse if needed. He had EGD this morning but doesn't show any active bleeding and initially he was refusing for colonoscopy which later on was agreeable. We will keep him on clear liquids and then make him nothing by mouth after 12 midnight. We will start GoLYTELY at 2 PM for bowel preparation. He is okay to be downgraded to telemetry Metabolic Normal electrolytes Neurology/psych Patient has history of anxiety and depression and would benefit from psych consultation. London Shaver MD 07/31/17 2185: Attending MD Review Statement Attending Statement Attending MD Statement: examined this patient, discuss w/resident/PA/SAMPLE TESTER, agreed w/resident/PA/SAMPLE TESTER, reviewed EMR data (avail), discussed w/nursing, amended to note Attending Assessment/Plan: The patient was seen and discussed with house staff and GI (Dr. Cano). Findings of EGD noted. OK to feed patient and change to po PPI. Patient may try Percocet for rib pain. Follow H/H.
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
[2017-07-31 16:00] VITALS: BP 120/74
[2017-07-31 19:05] LABS: ABSOLUTE BASOPHIL COUNT 0.1 /CUMM (0.0-0.2); ABSOLUTE EOSINOPHIL COUNT 0.2 /CUMM (0.0-0.7); ABSOLUTE GRANULOCYTE CT 3.9 /CUMM (1.4-6.5); ABSOLUTE LYMPH COUNT 2.5 /CUMM (1.2-3.4); ABSOLUTE MONOCYTE COUNT 0.6 /CUMM (0.10-0.60); EOSINOPHIL % 2.1 % (0-5); HEMATOCRIT 28.4 % (42-52); MEAN CORPUSCULAR HGB 29.8 PG (27.0-31.0); MEAN CORPUSCULAR HGB CONC 33.9 G/DL (33.0-37.0); MEAN CORPUSCULAR VOLUME 87.8 FL (80.0-94.0); PLATELET COUNT 240 /CUMM (130-400); RBC DISTRIBUTION WIDTH 14.5 % (11.5-14.5); RED BLOOD CELL CT 3.23 /CUMM (4.70-6.10); WHITE BLOOD CELL COUNT 7.3 /CUMM (4.8-10.8)
[2017-07-31 19:24] VITALS: BP 118/72
[2017-07-31 23:19] VITALS: BP 114/74
[2017-08-01 06:00] VITALS: BP 112/68
--- NOTE | 2017-08-01 07:56 | PN- Housestaff ---
Shaggy Garcia 08/01/17 0756: Subjective Follow-up For: acute blood loss anemia most likely due to upper GI bleed Acute multiple rib fractures History of syncopal episodes most likely vasovagal; no arrhythmias noted on tele Tele-Events Since Last Visit: SR, rate 68-80 , no events Subjective: The patient was seen and examined. He was not cooperative with finishing bowel prep for colonoscopy therefore his test was cancelled by GI. He denies any further episode of GI bleeding. Denies any CP, SOB, Dizziness, lightheadedness, n/v/abdominal pain, urinary symptoms. VSS, no overnight events. Has been walking w/o problem or dizziness/ lighheadedness. Review of Systems Constitutional: Reports: no symptoms. Objective Last 24 Hrs of Vital Signs/I&O Vital Signs Date Time Temp Pulse Resp B/P B/P Pulse O2 O2 Flow FiO2 Mean Ox Delivery Rate 08/01 0600 98.4 70 16 112/68 97 08/01 0547 80 95 08/01 0322 71 08/01 0050 82 95 07/31 2319 98.2 61 18 114/74 96 07/31 2234 73 96 Intake & Output 08/01 1600 08/01 0800 08/01 0000 Intake Total 1000 Output Total Balance 1000 Intake, Oral 1000 Number 3 Bowel Movements Physical Exam General Appearance: Alert, Oriented X3, No Acute Distress Skin: No Rashes HEENT: Atraumatic, PERRLA, EOMI, Mucous Membr. moist/pink Neck: Supple Cardiovascular: Regular Rate, Normal S1, Normal S2, No Murmurs, Gallops, Rubs Lungs: Clear to Auscultation, Normal Air Movement Abdomen: Normal Bowel Sounds, Soft, No Tenderness, No Hepatospenomegaly, No Masses Neurological: Normal Gait, Normal Speech Extremities: No Clubbing, No Cyanosis, No Edema, Normal Pulses, No Tenderness/ Swelling Vascular: Normal Pulses, Pulses Symmetrical Other Physical Findings: Mild tenderness to palpation on left chest wall. No ecchymosis Current Medications: Current Medications Sig/Deuce Start time Last Medication Dose Route Stop Time Status Admin Acetaminophen 650 MG Q6P PRN 07/30 1415 DCD 07/30 PO 2341 Lidocaine 1 PAT DAILY PRN 07/30 1545 DCD 07/30 EXT 1555 Omeprazole 40 MG BID 07/31 2100 DCD 08/01 PO 0730 Ondansetron HCl 4 MG Q6P PRN 07/30 1415 DCD IV Oxycodone/ 1 TAB Q4P PRN 07/31 0945 DCD 08/01 Acetaminophen PO 1006 Paroxetine HCl 40 MG DAILY 07/31 0900 DCD 08/01 PO 0731 Last 24 Hrs of Lab/Kwesi Results Last 24 Hrs of Labs/Mics: Laboratory Tests 08/01/17 0730: Anion Gap 7, Estimated GFR > 60, Glucose 98, Calcium 8.1 L, Phosphorus 3.7, Magnesium 2.0, Total Bilirubin 0.5, AST 14 L, ALT 16 L, Albumin 3.0 L 08/01/17 0500: CBC w Diff Cancelled, WBC Cancelled, RBC Cancelled, Hgb Cancelled, Hct Cancelled , MCV Cancelled, MCH Cancelled, MCHC Cancelled, RDW Cancelled, Plt Count Cancelled, MPV Cancelled 07/31/17 2100: CBC w Diff Cancelled, WBC Cancelled, RBC Cancelled, Hgb Cancelled, Hct Cancelled , MCV Cancelled, MCH Cancelled, MCHC Cancelled, RDW Cancelled, Plt Count Cancelled, MPV Cancelled Assessment/Plan Assessment: This is a 71-year-old male with past medical history significant for anxiety, depression, PTSD, obstructive sleep apnea, CAD, GERD, multiple obstructed hiatal hernia requiring Patricia fundoplication and mesh repair, history of gastric volvulus and last EGD in September 2016 showed erosive gastritis who presented to the hospital with lightheadedness and syncopal episode most probably due to acute blood loss anemia and given episodes of melena during hospital stay. Initial endoscopy showed nonbleeding linear erosionsc 1 out at posterior wall of body/fundus, left intact. Problem list: #Acute blood loss anemia most likely due to upper GI bleed-H&H stable #Episode of black BM yesterday-likely old blood #Acute multiple rib fractures-stable, xray negative for fractures #History of obstructive sleep apnea #History of syncopal episodes most likely vasovagal w/o evidence of arrhythmias Plan: * H&H stable * Per GI okay to DC patient and have colonoscopy and repeat endoscopy done as an outpatient. * Pt is adament to be discharged. * Kyaw DC patient on PO PPI, extra strength tylenol for pain mx. States he can't afford the meds, case mx contacted to provide him with med supply. * Advised to follow with PCP, facer operator(potential candidate for JOSE ANTONIO inhibitor or ARB, statin, and beta kenneth) and GI within a week. * DVT PPX ALPS * Full code Problem List: 1. GI bleeding Pain Ratin Pain Location: left chest wall Pain Goal: Pain 4 or less Pain Plan: percocet Tomorrow's Labs & Rationales: Tayler Trujillo 08/01/17 1139: Attending MD Review Statement Attending Statement Attending MD Statement: examined this patient, discuss w/resident/PA/GAS DESULFURIZER, agreed w/resident/PA/GAS DESULFURIZER, discussed with family, reviewed EMR data (avail), discussed with nursing, discussed with case mgmt, reviewed images, amended to note Attending Assessment/Plan: Patient seen/examined bedside. Patient verbally abusive to staff. Patient was suppossed to go for Colonscopy , however non coperative with Bowel prep as advised by GI. Patient hematcorit and hemodynamics stable. Patient can be discharged on PPI bid with outpatient follow up with Dr Gonzalez in 2 weeks of discharge. Follow up biopsy results from EGD. Patient in agreement with plan.
--- NOTE | 2017-08-01 10:52 | Patient Discharge Instructions ---
Discharge Instructions General Discharge Information You were seen/treated for: GI bleeding Special Instructions: -Please follow up with your PCP within a week of discharge. -Please follow up with Dr. Gonzalez for your colonosocopy. Make an appointment to see him within a week of dishcarge. -Please follow up with your Biofuels Technology Development Manager within a week of discharge. -Please take your medication as instructed. -Please return to the hospital if your symptoms not improve/worsen. -Please avoid any NSAIDS containing medications. Diet Continue normal diet: Yes Activity Additional ACTIVITY Info: As tolerated Acute Coronary Syndrome Inclusion Criteria At DC or during hospital stay patient has or had the following: ACS DIAGNOSIS No Discharge Core Measures Meds if any: Prescribed or Continued at Discharge Meds if any: NOT Prescribed or Continued at Discharge Congestive Heart Failure Inclusion Criteria At DC or during hospital stay patient has or had the following: Discharge Core Measures Meds if any: Prescribed or Continued at Discharge Meds if any: NOT Prescribed or Continued at Discharge Cerebrovascular accident Inclusion Criteria At DC or during hospital stay patient has or had the following: CVA/TIA Diagnosis No Discharge Core Measures Meds if any: Prescribed or Continued at Discharge Meds if any: NOT Prescribed or Continued at Discharge Venous thromboembolism Discharge Core Measures - Per Current guidelines, there needs to be overlap - treatment for the first 5 days of Warfarin therapy. - If discharged on Warfarin prior to 5 days of - overlap therapy, the patient will need to be - assessed for post discharge needs including - *Post discharge parental anticoagulation - *Warfarin and/or parental anticoagulation education - *Follow up date to check INR post discharge Meds if any: Prescribed or Continued at Discharge Note: Overlap Therapy is Warfarin and Anticoagulant Meds if any: NOT Prescribed or Continued at Discharge
[2017-08-01] MEDS ORDERED: PROTONIX40 M3 PO (11:41)
[2017-08-01] MEDS ORDERED: TYLENOL EXTRA500 M2 PO (11:41)
--- NOTE | 2017-08-02 07:36 | Discharge Summary ---
Hospital Course Allergies: Coded Allergies: hydromorphone (Intermediate, RASH, AM NOT IN CONTROL OF MYSELF, ITCHY, FEEL LOOPY 11/01/16) Discharge Instructions Medications at Discharge Discharge Medications: Continue taking these medications: Paroxetine HCl (Paxil) 40 MG TABLET 1 Tablet ORAL DAILY Comments: Last Taken:08/01/17 Time:0730 Start taking the following new medications: Pantoprazole Sodium (Protonix) 40 MG TABLET.DR 1 Tablet ORAL TWICE DAILY Qty = 60 No Refills Acetaminophen (Tylenol Extra Strength) 500 MG TABLET 1 Tablet ORAL TWICE DAILY as needed for Rib pain Qty = 14 No Refills
== END 2017-08-01 12:15 | DRG 378 ==
LOC: ERH 07:14 → ERHI 13:47 → EDBEDREQ 18:15 → ENRESERV 18:20 → CANRESERV 18:20 → EDBEDREQ 20:24 → CRI 07-31 00:22 → ENTRNSPT 07-31 13:00 → EDTRNSPT 07-31 13:12 → EDTRNSPTSTS 07-31 13:12 → CMPTRNSPT 07-31 13:31 → ENTRNSPT 07-31 18:42 → EDTRNSPTSTS 07-31 18:59 → 1NO 07-31 19:14 → CMPTRNSPT 07-31 19:40 → 1NO 08-01 09:28 → ENPENDDIS 08-01 11:41 → 1NO 08-01 12:15
PROVIDERS: Emergency Medicine; Internal Medicine; Student in an Organized Health Care Education/Training Program
PROC: 0DJ08ZZ Inspection of Upper Intestinal Tract, Via Natural or Artificial Opening Endoscopic (ICD-10-PCS; principal; 2017-07-31)
DX: K25.4 Chronic or unspecified gastric ulcer with hemorrhage (principal); D62 Acute posthemorrhagic anemia; G62.9 Polyneuropathy, unspecified; S22.42XA Multiple fractures of ribs, left side, initial encounter for closed fracture; I25.10 Atherosclerotic heart disease of native coronary artery without angina pectoris; G47.33 Obstructive sleep apnea (adult) (pediatric); Z96.612 Presence of left artificial shoulder joint; K31.7 Polyp of stomach and duodenum; W18.30XA Fall on same level, unspecified, initial encounter; Y92.002 Bathroom of unspecified non-institutional (private) residence as the place of occurrence of the external cause; K21.9 Gastro-esophageal reflux disease without esophagitis; R55 Syncope and collapse; E66.9 Obesity, unspecified; Z68.32 Body mass index [BMI] 32.0-32.9, adult; Z90.49 Acquired absence of other specified parts of digestive tract; F43.10 Post-traumatic stress disorder, unspecified; F41.9 Anxiety disorder, unspecified; Z98.890 Other specified postprocedural states; Z95.5 Presence of coronary angioplasty implant and graft; Z88.5 Allergy status to narcotic agent; Z86.711 Personal history of pulmonary embolism; Z98.1 Arthrodesis status; Z87.891 Personal history of nicotine dependence
CPT/HCPCS: 1NP; ERO; 36415; 71046; 71100-LT; 81003; 82436; 93005; 93010; 96374; J2405; J7040